=== PATIENT | male | born 1995 | race African-American/Black ===

== ENCOUNTER 2019-01-19 13:11 | Emergency (ER) | payer SELFPAY ==
[~2019-01-19] VITALS: Ht 177.8 cm; Wt 59.0 kg
[2019-01-19 13:25] VITALS: BP 135/70
--- NOTE | 2019-01-19 15:58 | PHYS DOC ---
Past Medical History Past Medical History: Other Additional Past Medical Histor: congenital heart defect Past Surgical History: No Surgical History Alcohol Use: Heavy Drug Use: None Adult General Chief Complaint Chief Complaint: MULTIPLE COMPLAINTS HPI HPI Patient is a 23 year old female who presents with low back pain for the last 2 years that is right in the middle and it feels exactly the same as it has been. 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 Patient states he was never seen for it and went to work on. 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 He rates his pain a 7 out of 10 and states it does radiate down the back of the left leg times. This pain is worse with movement. 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 Patient states he has chronic left chest pain that comes and goes and there last 2 months he states he started feeling again and is the same that he's always had. Patient states nothing makes it worse or better. States he is a smoker and he has been coughing recently. He denies any fevers. He states at times he will get short of breath with that is also not new. Review of Systems Review of Systems Respiratory: cough or denies shortness of breath [] Cardiovascular: Chest pain All other systems were reviewed and found to be within normal limits, except as documented in this note. Allergies Allergies Allergies Coded Allergies Type Severity Reaction Last Updated Verified No Known Drug Allergies 01/19/19 No Physical Exam Physical Exam Constitutional: Well developed, well nourished, no acute distress, non-toxic juarez earance. [] HENT: Normocephalic, atraumatic, bilateral external ears normal, oropharynx moist, no oral exudates, nose normal. [] Eyes: PERRLA, EOMI, conjunctiva normal, no discharge. [] Neck: Normal range of motion, no tenderness, supple, no stridor. [] Cardiovascular:Heart rate regular rhythm, no murmur [] Lungs & Thorax: Bilateral breath sounds clear to auscultation [] Abdomen: Bowel sounds normal, soft, no tenderness, no masses, no pulsatile masses. [] Skin: Warm, dry, no erythema, no rash. [] Back: No tenderness, no CVA tenderness. [] Extremities: No tenderness, no cyanosis, no clubbing, ROM intact, no edema. [] Neurologic: Alert and oriented X 3, normal motor function, normal sensory function, no focal deficits noted. [] Psychologic: Affect normal, judgement normal, mood normal. [] Current Patient Data Vital Signs Vital Signs Date Time Temp Pulse Resp B/P (MAP) Pulse Ox O2 Delivery O2 Flow Rate FiO2 01/19/19 13:25 98.1 79 16 135/70 (91) 98 Room Air 98.1 EKG EKG [] Radiology/Procedures Radiology/Procedures [] Course & Med Decision Making Course & Med Decision Making No pain to the spine or paraspinal. Abdomen soft and nontender. Lungs are clear to auscultation in all lobes. Skin pink warm and dry. Ambulatory with a steady gait. Vital signs within normal limits. Afebrile. Speaks in full clear sentences. No extremity swelling. He does not have a primary care provider. Patient states she's been taking 2 ibuprofen at a time is not helping. Patient is educated that he can take 4 ibuprofen every 8 hours as needed. Patient is also educated to stop smoking cigarettes. Patient denies nausea, vomiting, abdominal pain, dizziness, headache, numbness or tingling, diarrhea, dysuria, incontinence, shortness of breath. Denies chest or lung pain with breathing. Chest pain is not reproducible. PERC negative. I have offered a chest xray. Patient is MSE and he chose to not continue care. Dragon Disclaimer Dragon Disclaimer This electronic medical record was generated, in whole or in part, using a voice recognition dictation system. Departure Departure Impression: Primary Impression: Chronic back pain Additional Impressions: Chronic chest pain Encounter for medical screening examination Disposition: 01 HOME, SELF-CARE Condition: STABLE Referrals: NO PCP (PCP) Patient Instructions: Medical Screening Exam Problem Qualifiers Primary Impression: Chronic back pain Back pain location: low back pain Back pain laterality: left Sciatica presence: with sciatica Sciatica laterality: sciatica of left side Qualified Codes: M54.42 - Lumbago with sciatica, left side; G89.29 - Other chronic pain MELANIE PUENTES PAPIER MACHE MOLDER Jan 19, 2019 15:58
== END 2019-01-19 15:00 | disposition home or self-care (01) ==
LOC: ER 13:11
DX: M54.42 Lumbago with sciatica, left side (principal); G89.29 Other chronic pain; R07.89 Other chest pain; F17.200 Nicotine dependence, unspecified, uncomplicated
CPT/HCPCS: 99281

== ENCOUNTER 2019-01-22 13:26 | Emergency (ER) | payer SELFPAY ==
[~2019-01-22] VITALS: Ht 175.3 cm; Wt 59.0 kg
[2019-01-22 14:09] VITALS: BP 116/59
--- NOTE | 2019-01-23 15:02 | PHYS DOC ---
Past Medical History Past Medical History: Other Additional Past Medical Histor: congenital heart defect,chronic back pain Past Surgical History: No Surgical History Alcohol Use: Heavy Drug Use: None Adult General Chief Complaint Chief Complaint: BACK PAIN - NO INJURY HPI HPI Patient is a 23 year old AA male who presents to the ER with complaints of back pain for the last 2 years and chest pain with cough for the last 2 weeks. Pt sta [place] that he hurt his back at work 2 years ago and he has had back pain since them. He denies any fever, shortness of breath, wheezing, palpitations, sore throat, ear pain, nausea, vomiting, diarrhea, abdominal pain, dysuria, hematuria, or increased urinary frequency. He currently rates his pain a 10/10 on the pain scale, he denies any alleviating factors. The pain in his chest is t riggered by coughing and the pain in his back increases with movement. He denies any new injury to his back, saddle anesthesia, or loss of bowel/bladder control. All other ROS is neg unless otherwise noted in HPI. Review of Systems Review of Systems See Above Allergies Allergies Allergies Coded Allergies Type Severity Reaction Last Updated Verified No Known Drug Allergies 01/19/19 No Physical Exam Physical Exam See Above Constitutional: Well developed, well nourished, no acute distress, non-toxic appearance. [] HENT: Normocephalic, atraumatic, bilateral external ears normal, oropharynx moist, no oral exudates, nose normal. [] Eyes: PERRLA, EOMI, conjunctiva normal, no discharge. [] Neck: Normal range of motion, no stridor. [] Cardiovascular:Heart rate regular rhythm, no murmur [] Lungs & Thorax: Bilateral breath sounds clear to auscultation, Respirations even and unlabored, no retractions, no respiratory distress [] Skin: Warm, dry, no erythema, no rash. [] Back: No bony tenderness, no CVA tenderness; left lumbar paraspinal TTP. [] Extremities: No cyanosis, ROM intact Neurologic: Alert and oriented X 3, no focal deficits noted. [] Psychologic: Affect normal, judgement normal, mood normal. [] Current Patient Data Vital Signs Vital Signs Date Time Temp Pulse Resp B/P (MAP) Pulse Ox O2 Delivery O2 Flow Rate FiO2 01/22/19 14:09 98.0 85 18 116/59 (78) 100 Room Air 98.0 EKG EKG [] Radiology/Procedures Radiology/Procedures [] Course & Med Decision Making Course & Med Decision Making Pertinent Labs and Imaging studies reviewed. (See chart for details) dx: medical screening exam A medical screening exam was performed, patient was found to have no emergent medical condition. The plan of care would've included prescriptions for naproxen and flexeril in additon to back pain exercises and URI instructions. . However, the patient eloped after talking with registration. [] [] Dragon Disclaimer Dragon Disclaimer This electronic medical record was generated, in whole or in part, using a voice recognition dictation system. Departure Departure Impression: Primary Impression: Encounter for medical screening examination Disposition: 01 HOME, SELF-CARE (eloped after speaking with registration) Condition: STABLE Referrals: NO PCP (PCP) SOURAV TORRES APRN Jan 23, 2019 15:02
== END 2019-01-22 14:47 | disposition home or self-care (01) ==
LOC: ER 13:26
DX: G89.29 Other chronic pain (principal); M54.5 Low back pain; R07.89 Other chest pain; F10.20 Alcohol dependence, uncomplicated
CPT/HCPCS: 99281